=== PATIENT | male | born 1965 | race Caucasian/White ===

== ENCOUNTER 2018-03-12 18:21 | Inpatient (IN) | payer OTHER ==
[~2018-03-12] VITALS: Ht 190.5 cm; Wt 115.9 kg
--- NOTE | ~2018-03-12 | EC ---
PATIENT:VICKY REYES DATE OF SERVICE: 03/12/18 SEX: M MEDICAL RECORD: [id number] DATE OF : 63 LOCATION:[id number] AGE OF PATIENT: 52 ADMISSION DATE: 03/14/18 REFERRING PHYSICIAN: INTERPRETING PHYSICIAN: LYNNE DOHERTY MD ECHOCARDIOGRAM REPORT ECHO CHARGES 4 ECHO COMPLETE Date: 03/13 CLINICAL DIAGNOSIS: TIA ECHOCARDIOGRAPHIC MEASUREMENTS (adult normal given) AC root (d.<3.7cm) 3.1 cm LV Septum d (<1.2 cm> 1.2 cm Valve Excursion 2.0 cm LV Septum (systole) 1.8 cm Left Atria (s.<4.0cm> 5.0 cm LVPW d(<1.2cm) 1.3 cm RV (d.<2.3cm) 2.1 cm LVPW (sytole) 2.1 cm LV diastole(<5.6CM) 7.4 cm MV E-F(>70mm/sec) cm LV systole 5.6 cm LVOT Diameter 2.1 cm MV exc.(>10mm) cm Est.ejection fraction (50-75%) % DOPPLER: LVIT cm/sec A 79.0 cm/sec E 59.0 cm/sec LA cm/sec RVSP 36.0 mmHg LVOT 68.0 cm/sec AOP1/2T m/s Asc. Ao 157 cm/sec RVOT 80.0 cm/sec RA cm/sec PA 95.0 cm/sec AV Gradient Peak 9.8 mmHg AV Mean 5.8 mmHg AV Area 1.4 cm MV Gradient Peak 3.4 mmHg MV Mean 1.3 mmHg MV Area cm COMMENTS: Appeals Analyst: 1 YASMANI CONTRERASOE Public Speaking Instructor: 1 Dr. Doherty TAPE# PACS Pericardial Effusion N DATE OF SERVICE: FINDINGS: 1. Left ventricular chamber size is dilated. Left ventricular function is moderately reduced. Overall ejection fraction in the 30% range. 2. Left atrium is enlarged at 5.0 cm. Right atrium and right ventricular chamber sizes are as well mildly dilated. 3. Valvular structures have normal structure and motion. 4. Doppler interrogation reveals trace mitral regurgitation, trace tricuspid regurgitation. No other valvular insufficiency or stenosis. Pulmonary systolic ECHOCARDIOGRAM REPORT [id number] VICKY REYES pressure is estimated 36 mmHg. 5. No evidence of pericardial effusion or left ventricular thrombus. TRANSINT:[id number] Voice Confirmation ID: [id number] DOCUMENT ID: [id number] LYNNE DOHERTY MD at [id number] CC: [id number] DICTATION DATE: 03/14/18 1131 VICE PRESIDENT FIXED INCOME: 03/14/18 1413 DIS IN 03/15/18 [place] [id number] [place] [id number]
[2018-03-12 18:53] LABS: BASOPHILS 0.5 % (0-2); EOSINOPHILS 3.3 % (0-7); HEMATOCRIT 42.8 % (42.0-54.0); HEMOGLOBIN 14.5 g/dL (13.5-17.5); IMMATURE GRANULOCYTES 0.3 % (0-5); LYMPHOCYTES 26.4 % (15-50); MCH 31.9 pg (26.0-34.0); MCHC 33.9 g/dL (31.0-37.0); MCV 94.1 fL (80.0-100.0); MEAN PLATELET VOLUME 10.5 fL (7.4-10.4); MONOCYTES 5.3 % (2-11); NEUTROPHILS 64.2 % (40-80); PLATELET COUNT 224 10x3/uL (130-400); RBC 4.55 10x6/uL (4.20-6.10); RDW 12.1 % (11.5-14.5)
[2018-03-12 19:05] LABS: APTT 28.3 SECONDS (22.8-39.4); INR 1.08 (0.85-1.17); PROTIME 13.6 SECONDS (11.6-15.0)
[2018-03-12 19:10] LABS: ALBUMIN 3.4 g/dL (3.4-5.0); ALKALINE PHOSPHATASE 66 U/L (46-116); ALT (SGPT) 21 U/L (10-68); BILIRUBIN - TOTAL 0.32 mg/dL (0.2-1.3); CALC OSMOLALITY 284 mosm/kg (275-300); CALCIUM 8.5 mg/dL (8.5-10.1); CARBON DIOXIDE 27.9 mmol/L (21.0-32.0); CHLORIDE - SERUM 105 mmol/L (98-107); GLUCOSE 165 mg/dL (74-106); POTASSIUM - SERUM 3.7 mmol/L (3.5-5.1); PROTEIN - SERUM 7.2 g/dL (6.4-8.2); SODIUM 141 mmol/L (136-145); UREA NITROGEN 13 mg/dL (7-18); eGFR NON AFRICAN AMERICAN 83 mL/min (90-120)
[2018-03-12 19:53] LABS: CKMB 0.9 U/L (0.0-3.6); CREATINE KINASE 133 UL (21-232); TROPONIN-I 0.017 ng/mL (0.000-0.060)
[2018-03-12 21:53] LABS: APPEARANCE HAZY (CLEAR); BILIRUBIN NEGATIVE (NEGATIVE); COLOR YELLOW (YELLOW); GLUCOSE NEGATIVE (NEGATIVE); KETONE NEGATIVE (NEGATIVE); NITRITE NEGATIVE (NEGATIVE); PROTEIN NEGATIVE (NEGATIVE); SPECIFIC GRAVITY 1.015 (1.005-1.020); UROBILINOGEN NORMAL (NORMAL)
[2018-03-12 22:53] VITALS: BP 132/88; Ht 190.5 cm; Wt 115.9 kg
[2018-03-13 02:11] VITALS: BP 116/72
[2018-03-13 05:24] LABS: BASOPHILS 0.6 % (0-2); EOSINOPHILS 3.6 % (0-7); HEMATOCRIT 42.3 % (42.0-54.0); HEMOGLOBIN 13.9 g/dL (13.5-17.5); IMMATURE GRANULOCYTES 0.2 % (0-5); LYMPHOCYTES 27.3 % (15-50); MCH 31.2 pg (26.0-34.0); MCHC 32.9 g/dL (31.0-37.0); MCV 94.8 fL (80.0-100.0); MONOCYTES 6.6 % (2-11); NEUTROPHILS 61.7 % (40-80); PLATELET COUNT 227 10x3/uL (130-400); RBC 4.46 10x6/uL (4.20-6.10); RDW 12.1 % (11.5-14.5)
[2018-03-13 05:36] LABS: CALC OSMOLALITY 278 mosm/kg (275-300); CALCIUM 8.6 mg/dL (8.5-10.1); CHLORIDE - SERUM 107 mmol/L (98-107); CREATININE - SERUM 0.9 mg/dL (0.6-1.3); SODIUM 139 mmol/L (136-145); UREA NITROGEN 15 mg/dL (7-18); eGFR NON AFRICAN AMERICAN > 90 mL/min (90-120)
[2018-03-13 05:37] LABS: GLUCOSE 102 mg/dL (74-106)
[2018-03-13 06:42] VITALS: BP 118/81
[2018-03-13 09:07] VITALS: BP 115/78
[2018-03-13 10:50] VITALS: BP 126/59
[2018-03-13 11:40] LABS: CHOL - HDL RATIO 3.4 ratio (2.3-4.9); CHOLESTEROL, TOTAL 149 mg/dL (0-200); CREATINE KINASE 105 UL (21-232); HDL CHOLESTEROL 44 mg/dL (32-96); LDL CHOLESTEROL 87 mg/dL (0-100); TRIGLYCERIDE 91 mg/dL (30-200); TROPONIN-I < 0.017 ng/mL (0.000-0.060)
[2018-03-13 16:52] LABS: CKMB 0.5 U/L (0.0-3.6); CREATINE KINASE 101 UL (21-232); TROPONIN-I 0.019 ng/mL (0.000-0.060)
[2018-03-13 21:19] VITALS: BP 109/62
[2018-03-13 23:39] LABS: CKMB 0.9 U/L (0.0-3.6); CREATINE KINASE 91 UL (21-232); TROPONIN-I < 0.017 ng/mL (0.000-0.060)
[2018-03-14 00:41] VITALS: BP 112/64
[2018-03-14 04:41] LABS: BASOPHILS 0.5 % (0-2); EOSINOPHILS 2.6 % (0-7); HEMATOCRIT 41.7 % (42.0-54.0); IMMATURE GRANULOCYTES 0.2 % (0-5); LYMPHOCYTES 22.2 % (15-50); MCH 31.6 pg (26.0-34.0); MCHC 33.6 g/dL (31.0-37.0); MCV 94.1 fL (80.0-100.0); MEAN PLATELET VOLUME 10.9 fL (7.4-10.4); MONOCYTES 6.4 % (2-11); NEUTROPHILS 68.1 % (40-80); PLATELET COUNT 217 10x3/uL (130-400); RBC 4.43 10x6/uL (4.20-6.10); WBC 8.6 10x3/uL (4.8-10.8)
[2018-03-14 05:01] VITALS: BP 111/72
[2018-03-14 05:17] LABS: ALBUMIN 3.2 g/dL (3.4-5.0); ALKALINE PHOSPHATASE 56 U/L (46-116); ALT (SGPT) 20 U/L (10-68); BILIRUBIN - TOTAL 0.44 mg/dL (0.2-1.3); CALC OSMOLALITY 278 mosm/kg (275-300); CALCIUM 8.5 mg/dL (8.5-10.1); CARBON DIOXIDE 25.7 mmol/L (21.0-32.0); CHLORIDE - SERUM 104 mmol/L (98-107); CREATININE - SERUM 0.9 mg/dL (0.6-1.3); GLUCOSE 95 mg/dL (74-106); PROTEIN - SERUM 6.9 g/dL (6.4-8.2); SODIUM 139 mmol/L (136-145); UREA NITROGEN 15 mg/dL (7-18); eGFR NON AFRICAN AMERICAN > 90 mL/min (90-120)
[2018-03-14 10:27] VITALS: BP 114/78
[2018-03-14 18:18] VITALS: BP 113/69
[2018-03-14 20:44] VITALS: BP 157/60
[2018-03-15 01:24] VITALS: BP 158/68
[2018-03-15 05:00] VITALS: BP 124/64
[2018-03-15 06:58] LABS: BASOPHILS 0.4 % (0-2); EOSINOPHILS 1.5 % (0-7); HEMATOCRIT 41.1 % (42.0-54.0); IMMATURE GRANULOCYTES 0.1 % (0-5); LYMPHOCYTES 18.7 % (15-50); MCH 31.5 pg (26.0-34.0); MCHC 34.1 g/dL (31.0-37.0); MCV 92.4 fL (80.0-100.0); MEAN PLATELET VOLUME 10.9 fL (7.4-10.4); MONOCYTES 6.6 % (2-11); NEUTROPHILS 72.7 % (40-80); PLATELET COUNT 205 10x3/uL (130-400); RBC 4.45 10x6/uL (4.20-6.10); RDW 11.9 % (11.5-14.5); WBC 8.9 10x3/uL (4.8-10.8)
[2018-03-15 07:24] LABS: ALBUMIN 3.3 g/dL (3.4-5.0); ALKALINE PHOSPHATASE 57 U/L (46-116); ALT (SGPT) 22 U/L (10-68); BILIRUBIN - TOTAL 0.49 mg/dL (0.2-1.3); CALC OSMOLALITY 274 mosm/kg (275-300); CALCIUM 8.6 mg/dL (8.5-10.1); CARBON DIOXIDE 25.1 mmol/L (21.0-32.0); CHLORIDE - SERUM 101 mmol/L (98-107); CREATININE - SERUM 0.8 mg/dL (0.6-1.3); GLUCOSE 90 mg/dL (74-106); PROTEIN - SERUM 7.1 g/dL (6.4-8.2); SODIUM 137 mmol/L (136-145); UREA NITROGEN 14 mg/dL (7-18); eGFR NON AFRICAN AMERICAN > 90 mL/min (90-120)
[2018-03-15 08:12] VITALS: BP 118/79
[2018-03-15 11:51] VITALS: BP 121/82
[2018-03-15] MEDS ORDERED: LIPITOR10 MG PO (13:41)
[2018-03-15] MEDS ORDERED: LISINOPRIL2.5 MG PO (13:41)
[2018-03-15] MEDS ORDERED: NICODERM C1 PATCH .2 TRANSDERM (13:41)
[2018-03-15] MEDS ORDERED: ASPIRIN325 MG PO (13:41)
== END 2018-03-15 18:13 | disposition home or self-care (01) | DRG 65 ==
LOC: D.ER 18:21 → D.MS 20:26 → D.EDHOLD 20:26 → OBSVTIME 20:26 → D.EDHOLD 20:26 → D.MS 21:04
PROVIDERS: Family Medicine
DX: I63.9 Cerebral infarction, unspecified (principal); F17.203 Nicotine dependence unspecified, with withdrawal; R47.81 Slurred speech; R20.0 Anesthesia of skin; R09.02 Hypoxemia